=== PATIENT | male | born 1950 | race Caucasian/White ===

== ENCOUNTER 2016-07-13 09:54 | Observation (INO) | payer MEDICARE, OTHER ==
[~2016-07-13] VITALS: Ht 177.8 cm; Wt 105.1 kg
[2016-07-13 09:50] VITALS: BP 140/75; PULSE 60; RESP 16; O2SAT 99
--- NOTE | 2016-07-13 10:08 | ED.REPORT ---
HPI-Chest Pain 40 and Over Date of Service July 13, 2016 ED Provider: Fab Coronado MD The patient is a 66 year old male with history of hypertension, hyperlipidemia, and hypothyroidism, who was brought to the emergency department by EMS complaining of left-sided neck pain, left shoulder, and left-sided chest pain that began suddenly this morning while he was at rest. His pain was initially at a 6/10. He took 2 aspirin after onset with no relief. He was given nitroglycerin x4 by medics which improved his pain to a 1/10. His pain was not changed with exertion. He has not had similar symptoms in the past. He denies back pain, shortness of breath, lightheadedness, dizziness, nausea or vomiting. He denies history of cardiac disease. Nursing Notes Stated Complaint: CHEST PAIN Chief Complaint: Chest Pain Nursing Notes Reviewed: Yes Allergies: Uncoded Allergies: SEAFOOD (Allergy, Unknown, 07/13/16) "I have sensitive, especially crab. I still seafood." Scheduled Allopurinol (Allopurinol) 100 Mg Tablet 200 MG PO HS Colchicine (Colchicine) 0.6 Mg Tablet 0.6 MG PO HS Levothyroxine (Levothyroxine) 50 Mcg Tablet 50 MCG PO DAILY Losartan Potassium (Losartan Potassium) 50 Mg Tablet 50 MG PO DAILY Metoprolol Succinate ER (Metoprolol Succinate ER) 25 Mg Tab.er.24h 25 MG PO HS Simvastatin (Simvastatin) 40 Mg Tablet 40 MG PO QPM diphenhydrAMINE HCl (Benadryl) 25 Mg Capsule 50 MG PO HS Scheduled PRN Aspirin (Aspirin) 325 Mg Tablet 325 MG PO DAILY PRN PRN prn Indomethacin (Indomethacin) 50 Mg Capsule 50 MG PO TID PRN PRN gout General Time Seen by MD: 09:56 Chief Complaint Chest pain Hx Obtained From: Patient, Spouse, EMS Arrived By: Ambulance Sudden in Onset?: Yes Onset Occurred: 1 - 4 hours ago Symptom Duration: Since onset Location: : Chest left: Neck: Shoulder left Quality: Painful Severity: Current: Pain level 1 out of 10 Severity: Maximum: Pain level 6 out of 10 Recent Healthcare: No recent doctor visit, No recent hospitalization Similar Sx Previous: No Past Medical History Past Medical History Hypertension Hyperlipidemia Hypothyroidism Gout Denies: Coronary artery disease Family History Noncontributory Social History Other Social History: Good social support, , Local resident Ambulatory Status Independent Review of Systems Respiratory: Denies: Shortness of breath Cardiovascular: Reports: Chest pain GI: Denies: Nausea, Vomiting Musculoskeletal: Reports: Joint pain, Neck pain, Denies: Back pain Neurologic: Denies: Dizziness, Lightheaded Complete sys rev & neg: except as marked. Physical Exam Initial Vital Signs Vital Signs (First) Date Time Temp Pulse Resp B/P Pulse Ox O2 Delivery O2 Flow Rate FiO2 07/13/16 09:50 36.6 60 16 140/75 99 Room Air Initial VS: Reviewed Head / Eyes: Atraumatic, Normocephalic, PERRL ENT: Mucous membranes moist, Conjunctiva normal, No scleral icterus Neck: Supple, Non-tender, Full range of motion Back: No CVA tenderness Lymphatic: No lymphadenopathy Extremities: Vascular intact, Neuro intact, No swelling, No tenderness Skin: Warm, Dry, No cyanosis Neurologic: Alert, Oriented, Nonfocal Psychiatric: Mood/affect normal, Behavior normal, Normal thought content General/Constitutional: Awake, Alert, No acute distress, Well appearing Respiratory / Chest: Atraumatic, Breath sounds NL, Breath sounds = bilat, No respiratory distress, No rales, No rhonchi, No wheezing, No stridor, No chest tenderness No reproducible tenderness Cardiovascular: Heart rate NL, Regular rhythm, Heart sounds NL, No gallop, No murmurs, No rubs, Peripheral circulation NL, Pulses = bilaterally, No gross BP differential Abdomen: Atraumatic, Soft, Non-tender, McBurney's non-tender, No guarding, No rebound, BS normoactive, No distention, No hernia, No palpable mass Lower Extremity / Pelvis / MS: No swelling, Non-tender, Neurologic intact, Vascular intact, No edema Interpretation & Diagnostics Lab Results Interpretation Result Diagram: 07/13/16 1000 07/13/16 1000 Test 07/13/16 10:00 07/13/16 13:56 White Blood Count 7.2th/mm3 (3.8-10.1) Red Blood Count 5.02mil/mm3 (4.40-5.80) Hemoglobin 15.4g/dL (13.8-17.2) Hematocrit 44.3% (41.0-50.0) Mean Corpuscular Volume 88.2fL (81-100) Mean Corpuscular Hemoglobin 30.7pg (27.0-35.0) Mean Corpuscular Hemoglobin Concent 34.8% (32.0-37.0) Red Cell Distribution Width 13.3% (12.3-15.4) Platelet Count 182bil/L (150-400) Neutrophils (%) (Auto) 45.9% (40-74) Lymphocytes (%) (Auto) 42.0% (14-46) Monocytes (%) (Auto) 9.2% (4-12) Eosinophils (%) (Auto) 2.2% (0-5) Basophils (%) (Auto) 0.4% (0-3) Activated Partial Thromboplast Time 27.0sec (22.8-33.0) D-Dimer < 0.50mg/L FEU (<0.50) Hold Urine Received (Received) Sodium Level 138mEq/L (134-144) Potassium Level 4.3mEq/L (3.5-5.2) Chloride Level 103mEq/L (97-108) Carbon Dioxide Level 19mmol/L (18-29) Blood Urea Nitrogen 19mg/dL (8-27) Creatinine 0.76mg/dL (0.76-1.27) Estimat Glomerular Filtration Rate 109mL/min (>59) Glucose Level 145mg/dL (60-99) Calcium Level 8.8mg/dL (8.5-10.1) Magnesium Level 2.0mg/dL (1.6-2.6) Total Bilirubin 0.5mg/dL (0.0-1.2) Aspartate Amino Transf (AST/SGOT) 24U/L (0-50) Alanine Aminotransferase (ALT/SGPT) 25U/L (0-44) Alkaline Phosphatase 96U/L (25-160) Troponin T 0.010ug/L (0.0-0.011) Total Protein 6.6g/dL (6.4-8.4) Albumin 4.1g/dL (3.4-5.0) ECG Interpretation ECG Interpretation: Sinus rhythm with a rate of [address] T changes Time: 10:08 Interpreted by: ED physician X-Ray Chest Interpretation Chest Xray Interpretation: Normal chest Interpretation / Wet Read by: Interpret - Radiologist Re-Eval/Medical Decision Med Decision/Clinical Course 66-year-old male history of hypertension, hyperlipidemia presenting with left-sided chest pain radiating to neck and shoulder at 8:00 this morning lasting for 1 hour resolved with nitroglycerin by paramedics. No recurrence. EKG no ischemia. First set troponins negative. Discussed with bioinformatics technician who recommends admission for trending EKG and enzymes and starting heparin drip. Admitted. Source of Hx: Old records, EMS, Family Time of Eval: 12:10 Re-Evaluation/Progress Note: Rechecked the patient. Discussed plan for admission. All questions were addressed. Consultation #1: Referral / Consult Name: Ron Amezcua MD Consulted With: Cardiology Call Returned at: 11:45 Note: He recommends heparin and admission. Consultation #2: Referral / Consult Name: Ashish Thomas MD Consulted With: Hospitalist Call Returned at: 13:45 Licensing Coordinator: Will see patient, Agrees with eval, Agrees with plan, Accepts admit Counseled Regarding: Diagnosis, Lab results, Need for admission Discharge & Departure Primary Impression: Chest pain Chest pain type: unspecified Qualified Code: R07.9 - Chest pain, unspecified Disposition: ADMITTED TO HOSPITAL Discharge Condition All VS Reviewed: Yes Condition: Stable Crit Care Except Billable Proc Time Spent: 30-74 minutes (60) Services Performed: Patient management by me, Time spent at bedside, Reviewing test results, Reviewing imaging, Discussing patient care, Documentation in record, Time with fam/surrogate Scribe Attestation Portions of this note were transcribed by Holly Melendez. I, Dr. Coronado personally performed the history, physical exam and medical decision-making; I reviewed and confirmed the accuracy of the information in the transcribed note. Signed by: Umesh Smith, 07/13/2016 at 1430. Fab Coronado MD July 13, 2016 10:08 Holly Melendez July 13, 2016 10:14
[2016-07-13 10:14] LABS: BASOPHILS % (AUTO) 0.4 % (0-3); EOSINOPHILS % (AUTO) 2.2 % (0-5); MONOCYTES % (AUTO) 9.2 % (4-12); Mean Corpuscular Hemoglobin 30.7 pg (27.0-35.0); Mean Corpuscular Volume 88.2 fL (81-100); NEUTROPHILS % (AUTO) 45.9 % (40-74); Platelet Count 182 bil/L (150-400)
[2016-07-13 10:39] LABS: TROPONIN T 0.01 ug/L (0.0-0.011)
[2016-07-13 11:28] VITALS: BP 139/76; PULSE 57; RESP 18; O2SAT 99
[2016-07-13] MEDS ORDERED: Heparin 25K Unit/500mL 0.45 NS 25,000 UNIT in IV Premix 1 EACH IV ONE (12:10)
[2016-07-13] MEDS ORDERED: Heparin 5,000 Unit/mL Inj IVPUSH ONE (12:10)
[2016-07-13] MEDS ORDERED: Ondansetron 2 mg/mL 2 mL Inj IVPUSH PRN ×3 (13:25→14:00)
[2016-07-13] MEDS ORDERED: Alum-Mag Hydrox-Simeth 30 mL Suspension PO PRN (13:25)
[2016-07-13] MEDS ORDERED: COLC0.6T55 PO (13:35)
[2016-07-13] MEDS ORDERED: Polyethylene Glycol (PEG) 17 Gm Powder PO PRN ×2 (13:40→14:00)
[2016-07-13] MEDS ORDERED: Heparin 25K Unit/500mL 0.45 NS 25,000 UNIT in IV Premix 1 EACH IV SCH (14:00)
[2016-07-13] MEDS ORDERED: Heparin 5,000 Unit/mL Inj IVPUSH PRN (14:00)
[2016-07-13] MEDS ORDERED: LOSA50TA37 PO (14:08)
[2016-07-13] MEDS ORDERED: SIMV40TA5 PO (14:08)
[2016-07-13] MEDS ORDERED: ASPI325T32 PO (14:08)
[2016-07-13] MEDS ORDERED: METO25TA99 PO (14:08)
[2016-07-13] MEDS ORDERED: LEVO50TA6 PO (14:08)
[2016-07-13] MEDS ORDERED: INDO50CA PO (14:08)
[2016-07-13] MEDS ORDERED: ZYL100 PO (14:08)
[2016-07-13] MEDS ORDERED: DIPH25CA6 PO (14:08)
--- NOTE | 2016-07-13 14:29 | PCM.HPMED ---
Subjective Date of Service July 13, 2016 Primary Provider: Admitting Physician: Primary Care Physician: Racheal Christian MD Attending Physician: Admit Status: From the Emergency Department, 23-Hour Observation, Admit to [facility] Team, Remote Telemetry Chief Complaint: Chest pain History of Present Illness: This is a 66-year-old, who was admitted today with chest pain. He was sitting in his recliner home when he developed his acute on chronic neck pain. Neck pain is positional and migrated to the left arm. He then developed a chest pressure which was persistent and did not seem to increase with anything in particular. No associated nausea vomiting or diaphoresis. The pain was not clearly pleuritic. Ultimately because of persistent aching he called 911 and was given nitroglycerin spray which did help his symptoms. The patient has no cardiac history. He has noted progressive dyspnea on exertion over the years but no chest pain with exertion. No history of heart problems. He denies any pedal edema, orthopnea, pleuritic pain, or hemoptysis. No leg swelling. In the ED his EKG and troponin were normal. He was started on heparin drip. He does have a strong family history for cardiac disease as well as hypertension and hyperlipidemia. He has never had a stress test. No recent URI symptoms including rhinorrhea cough or sore throat. No fevers or chills. Review of Systems: No headache, visual changes or hearing loss. He denies any nausea or diarrhea emesis. No dyspepsia. No difficulty with urination. No blood per rectum. No weight loss or gain. No anxiety or depression. All systems reviewed and otherwise negative except as noted in history of present illness Allergies Uncoded Allergies: SEAFOOD (Allergy, Unknown, 07/13/16) "I have sensitive, especially crab. I still seafood." Home Medications Metoprolol XL 25 daily simvastatin 40 daily aspirin periodically 81 mg daily levothyroxine 50 g daily L. All 100 mg daily losartan 50 mg daily colchicine 0.6 mg when necessary and indomethacin 50 mg by mouth daily when necessary PMH 1. Essential hypertension 2. Intermittent gout 3. Hyperlipidemia Family History Father with heart disease at age 59 and 2 brothers with no heart disease disease with carotid disease at age 59. Social History Occupation: retired Hx Alcohol Use: Yes (daily- 1 glass wine) Hx Substance Use: No Hx Tobacco Use: No Living Arrangement: with Family Exam Vital Signs Vital Sign - Last Date Time Temp Pulse Resp B/P Pulse Ox O2 Delivery O2 Flow Rate FiO2 07/13/16 11:28 57 18 139/76 99 Nasal Cannula 07/13/16 09:50 36.6 Exam Oriented 3. No distress. Fluent speech. Normal affect. Normal skull. Normal nose and ears. Anicteric sclera, symmetric pupils Oropharynx is unremarkable, no facial droop. Neck is supple, normal thyroid. No adenopathy. Lungs are clear, normal effort rate. Heart is regular without murmur gallop or rub. Abdomen soft, nondistended or tender. Extremities are free of pedal edema. Good radial and pedal pulses. Skin is free of rash, lesions. No petechiae or ecchymosis. Joints are grossly normal. Cranial nerves are grossly normal. Motor strength is normal in all extremities. Normal muscular tone. Lab and Diagnostics Result Diagram: 07/13/16 1000 07/13/16 1000 X-Rays, CTs and MRIs Chest x-ray is unremarkable 12-lead ECG EKG sinus rhythm without ST segment changes Assessment & Plan 1. Chest pain, POA. Improved. The patient is at moderate risk for heart disease. This point we will continue his beta blockade, aspirin, and heparin. The patient had several troponins. The heparin was recommended by cardiology when the ED physician called. The patient has negative troponins and no symptoms overnight we will stop the heparin drip in the morning and proceed with a stress test. 2. Essential hypertension, POA. Usual medications and monitor clinically 3. Hyperlipidemia, POA. Recheck lipids and continue statin. 4. Chronic gout, POA. Currently quiescent. Continue allopurinol. Patient is full resuscitation, discussed today Observation status with anticipated length of stay of one night. Pain Evaluation: Adequate Pain Control Resuscitation Status: CPR: Attempt Resuscitation Time spent 40 minutes Ashish Thomas MD July 13, 2016 14:29
[2016-07-13 14:44] LABS: APPEARANCE,URINE CLEAR (CLEAR,HAZY); COLOR,URINE YELLOW (YELLOW); OCCULT BLOOD,URINE MODERATE (NEGATIVE); UROBILINOGEN,URINE NORMAL (NORMAL)
--- NOTE | 2016-07-13 16:07 | NUR ---
[place] [facility] [place] Transfer[place] [facility] at 1607 in stable conditions. Report given to [facility] nurse, Jose Clark RN. went to [facility] with pt.
[2016-07-13] MEDS: Sodium Chloride LOK Flush 10 mL Syringe IVFLUSH SCH (16:30)
[2016-07-13] MEDS ORDERED: Sodium Chloride LOK Flush 10 mL Syringe IVFLUSH SCH (16:30)
[2016-07-13 16:32] VITALS: PULSE 63
[2016-07-13 16:42] VITALS: BP 171/90; PULSE 59; RESP 22; O2SAT 100
--- NOTE | 2016-07-13 17:52 | NUR ---
Admit [facility] [place] admitted [place] [facility] at approx 1615, arrived on RA with IV heparin infusing, denies CP, and able to ambulate to standing scale. Pt arrived accompanied by and with all belongings. Admit and med rec MD killian notified & home meds ordered. Pt to be NPO after midnight for stress test in am. Care continues
[2016-07-13 20:00] VITALS: PULSE 72
[2016-07-13 20:27] VITALS: BP 162/105; PULSE 66; RESP 22; O2SAT 95
[2016-07-13] MEDS: Heparin 5,000 Unit/mL Inj IVPUSH PRN (20:39)
[2016-07-13] MEDS: Heparin 25K Unit/500mL 0.45 NS 25,000 UNIT in IV Premix 1 EACH IV SCH (20:43)
[2016-07-13] MEDS ORDERED: MeTOProlol XL 25 mg ER24 Tablet PO SCH (21:00)
[2016-07-13] MEDS ORDERED: diphenhydrAMINE 25 mg Capsule PO SCH (21:00)
[2016-07-14] MEDS: Sodium Chloride LOK Flush 10 mL Syringe IVFLUSH SCH ×2 (00:30→08:15)
[2016-07-14 00:57] VITALS: BP 189/103; PULSE 64; RESP 20; O2SAT 100
[2016-07-14] MEDS ORDERED: Nitroglycerin 2% 1 Gm Ointment TOPICAL ONE (01:05)
[2016-07-14 01:31] VITALS: BP 163/97; PULSE 61; RESP 20
[2016-07-14 02:58] VITALS: BP 133/74; PULSE 66; RESP 20
[2016-07-14] MEDS: Heparin 5,000 Unit/mL Inj IVPUSH PRN ×2 (02:59→09:04)
[2016-07-14] MEDS: Heparin 25K Unit/500mL 0.45 NS 25,000 UNIT in IV Premix 1 EACH IV SCH ×2 (03:00→13:32)
[2016-07-14 06:04] VITALS: BP 122/73; PULSE 79; RESP 20; O2SAT 94
[2016-07-14 06:31] LABS: BASOPHILS % (AUTO) 0.2 % (0-3); EOSINOPHILS % (AUTO) 0.3 % (0-5); MONOCYTES % (AUTO) 10.8 % (4-12); Mean Corpuscular Hemoglobin 31.2 pg (27.0-35.0); Mean Corpuscular Volume 87.3 fL (81-100); NEUTROPHILS % (AUTO) 70.1 % (40-74); Platelet Count 214 bil/L (150-400)
--- NOTE | 2016-07-14 08:54 | DRSVH ---
PROCEDURE: X-RAY CHEST ONE VIEW, PORTABLE ([id number]) INDICATIONS: CHEST PAIN TECHNIQUE: One view of the chest was acquired. COMPARISON: None. FINDINGS: Surgical changes and devices: None. Lungs and pleura: No pleural effusions or pneumothorax. Lungs are clear. Mediastinum: Mediastinal contours appear normal. Heart size is normal. Bones and chest wall: No suspicious bony lesions. Overlying soft tissues appear unremarkable. IMPRESSION: Normal chest. Dictated by: Pete Gonzalez M.D. on 07/13/2016 at 10:45 Approved by: Pete Gonzalez M.D. on 07/13/2016 at 10:45
[2016-07-14 11:03] VITALS: PULSE 78
--- NOTE | 2016-07-14 11:16 | NUR ---
Case Management- PEREZ explained and signed by patient. Copy given to patient and orginal placed in chart Demetrice ALLEN/KORY
--- NOTE | 2016-07-14 11:40 | NUR ---
Disconnect Heparin drip for Stress test Patient had Heparin drip running at 1450 units/hour. Patient had order for stress test in AM. notified and ok'd patient to be disconnected from heparin drip for procedure. Will reconnect heparin drip to patient when patient arrives back on [facility] floor.
[2016-07-14 12:07] VITALS: BP 133/87; PULSE 81; RESP 20; O2SAT 93
--- NOTE | 2016-07-14 14:55 | DRSVH ---
PROCEDURE: 1 DAY TREADMILL STRESS TEST Rest and exercise myocardial perfusion SPECT with gated imaging and ejection fraction RADIOPHARMACEUTICAL: 11.0 mCi Tc-99m tetrafosmin IV at rest and 30.6 mCi Tc-99m tetrafosmin IV at pea k exercise. Fot-che-bjzlovyh was performed. INDICATIONS: 66-year-old man with chest pain. The patient has family history, hypertension and hyper lipidemia as risk factors for coronary artery disease. Evaluate myocardial ischemia. TECHNIQUE: Radiopharmaceutical was injected at peak stress test, and also at rest. SPECT images wer e obtained. SPECT myocardial perfusion images were displayed in short axis, horizontal long axis, an d vertical long axis views. Gated images were reviewed using [employer] software. COMPARISON: None. CARDIAC STRESS: A standard Jose treadmill exercise tolerance test was performed by the patient under the supervision of an attending staff. The patient exercised for 6 minutes and 50 seconds; functional aerobic impai rment (JOAN) is 0 %. Hemodynamic data: There is normal blood pressure and heart rate response to exercise stress. Patien t achieved 86% of maximum predicted heart rate at peak exercise. Symptoms: Patient denied chest pain at peak exercise exercise, resolved 6 minutes into recovery. EK mm ST depression in inferior leads; occasional PVCs. FINDINGS: Raw data: There is good myocardial labeling by radiotracer. No significant motion artifacts. Left ventricle function: Gated images demonstrate normal left ventricle wall thickening. No segment al wall motion abnormality. No transient ischemic dilation. The left ventricle resting end-diastoli c volume is normal. Left ventricle stress ejection fraction is greater than 70%; normal values are a matt 45%. Myocardial perfusion: There is a moderate size, mild, fixed defect in the lateral wall of the left v entricle, which is resolved on prone imaging, suggesting attenuation artifact. There is otherwise nor mal distribution of activity in the left and right ventricular myocardium. No reversible perfusion d efects to suggest myocardial ischemia. IMPRESSION: 1. Probably normal myocardial perfusion images. No convincing evidence for myocardial ischemia or inf arct. 2. Normal left ventricular volume and systolic function. 3. Average exercise capacity. No chest pain. There was [address] depression in the inferior leads. PQRS ATTESTATIONS: Measure 322 - Is this imaging test primarily performed on a low-risk surgery patient for preoperative evaluation within 30 days preceding their low-risk non-cardiac surgery? Low-risk surgery is defined as cardiac or myocardial infarction less than 1%, including (but not limited to) endoscopic pr ocedures, superficial procedures, cataract surgery, and excisional breast surgery: Answer: No Measure 323 - Is this imaging test performed primarily for the monitoring of an asymptomatic patient who had percutaneous coronary intervention on the visit date or within 2 years of the visit date? An swer: No Measure 324 - Is this imaging test performed primarily for the initial detection and risk assessment on an asymptomatic, low coronary heart disease patient? Low CHD risk definition = clinicians should consider the maximum number of available patient factors used to estimate risk based on [place] (A TP III criteria), typically age, gender, diabetes, smoking status, and use of blood pressure medicati on, and integrate age appropriate estimates for missing elements, such as LDL or standard blood press ure. Answer: No Dictated by: Luis F Hobbs M.D. on 07/14/2016 at 14:42 Approved by: Luis F Hobbs M.D. on 07/14/2016 at 14:53
--- NOTE | 2016-07-14 15:14 | NUR ---
Social Work-initial assessment/readiness for discharge: Data:See initial assessment. Pt is a 66 y/o male who was admitted on 07/13/16 for chest pain per H&P. Pt's insurance is [employer] and PCP is Racheal Christian MD. EMR reviewed. Pt's readmission score is 1. SW met with pt to discuss discharge planning, SW role explained. Pt is alert and oriented x3. Pt resides at home with his where he remains independent with ADLS. Pt does not use any DME and drives. Pt has no HH or SNF history. Pt no buttermaker helper care insurance or VA benefits. SW discussed DPOA/advanced directive, pt confirms he has completed this, SW encouraged a copy to be brought into the hospital. Pt anticipates to return home with at discharge. Pt has been up independent in his room. No discharge needs identified. SW provided phone number and plan on white board in room. SW will continue to follow if needs arise. Assessment:Pt who is independent at baseline. Plan:Pt to discharge home when medically stable via POV.No anticipated discharge needs. SW will continue to follow if needs arise. ANAI Fraser Addendum: 07/14/16 at 1517 by SALLY DEMARCO Amended: Links added.
--- NOTE | 2016-07-14 15:24 | PCM.DIMED ---
Discharge Instructions Date of Service July 14, 2016 Dates of Hospitalization July 13, 2016 at 15:03 Discharge Diagnosis Discharge Diagnosis Chest pain Test Results Your stress test was relatively normal showing good cardio perfusion. Your triglycerides were high 288 Diet Low fat, Low Sodium Activity No restrictions Call your provider Fever or Chills, Chest pain, Weakness (unilateral) Patient Instructions Please follow-up with your primary care physician for further workup and management of high triglycerides Follow-up Provider: Racheal Christian MD Follow-up with PCP in: 1 week (if an appointment has not been made please call to schedule an appointment) Daija Montoya DO July 14, 2016 15:24
--- NOTE | 2016-07-14 15:30 | NUR ---
Discharge Patient given discharge orders. Patient given medication list with written and verbal instructions when next dose is due. Patient IV removed fully intact and asymptomatic. Patient given follow up instructions. Patient in room at time of discharge. Patient reminded to leave with all personal belongings.
--- NOTE | 2016-07-14 15:31 | PCM.DC.MED ---
Discharge Summary Date of Service July 14, 2016 Dates of Hospitalization Date of Hospital Admission July 13, 2016 at 15:03 Date of Discharge: July 14, 2016 Providers: Admitting Physician: Ashish Thomas MD Primary Care Physician: Racheal Christian MD Attending Physician: Ashish Thomas MD Diagnosis at Time of Discharge Diagnosis at Time of Discharge Chest pain Procedures XRay, CTs & MRIs Chest x-ray is unremarkable ECG 12 Lead EKG sinus rhythm without ST segment changes Invasive Procedures PROCEDURE: 1 DAY TREADMILL STRESS TEST Rest and exercise myocardial perfusion SPECT with gated imaging and ejection fraction IMPRESSION: 1. Probably normal myocardial perfusion images. No convincing evidence for myocardial ischemia or infarct. 2. Normal left ventricular volume and systolic function. 3. Average exercise capacity. No chest pain. There was [address] depression in the inferior leads. Dictated by: Luis F Hobbs M.D. on 07/14/2016 at 14:42 Approved by: Luis F Hobbs M.D. on 07/14/2016 at 14:53 Brief History This is a 66-year-old, who was admitted today with chest pain. He was sitting in his recliner home when he developed his acute on chronic neck pain. Neck pain is positional and migrated to the left arm. He then developed a chest pressure which was persistent and did not seem to increase with anything in particular. No associated nausea vomiting or diaphoresis. The pain was not clearly pleuritic. Ultimately because of persistent aching he called 911 and was given nitroglycerin spray which did help his symptoms. The patient has no cardiac history. He has noted progressive dyspnea on exertion over the years but no chest pain with exertion. No history of heart problems. He denies any pedal edema, orthopnea, pleuritic pain, or hemoptysis. No leg swelling. In the ED his EKG and troponin were normal. He was started on heparin drip. He does have a strong family history for cardiac disease as well as hypertension and hyperlipidemia. He has never had a stress test. No recent URI symptoms including rhinorrhea cough or sore throat. No fevers or chills. Hospital Course Patient presented with the complaint of chest pain. The patient was worked up and had negative troponins 3. Cardiac stress test was performed and showed normal myocardial perfusion, no chest pain, there was a [address] depression during exercise however after discussion with cardiology (Dr. Amezcua) he states that the EKG change is most likely a false positive in the setting of good myocardial perfusion and no chest pain. The patient has been recommended to follow up with his primary care in the next week. The patient was diagnosed with hypertriglyceridemia and should also follow-up with his PCP for further workup and treatment. The patient is being discharged home in stable condition Please see below for full hospital course: 1. Chest pain, POA. Improved. The patient is at moderate risk for heart disease. This point we will continue his beta blockade, aspirin, and heparin. The patient had several troponins. The heparin was recommended by cardiology when the ED physician called. The patient has negative troponins and no symptoms overnight we will stop the heparin drip in the morning and proceed with a stress test. 2. Essential hypertension, POA. Usual medications and monitor clinically 3. Hyperlipidemia, POA. Recheck lipids and continue statin. 4. Chronic gout, POA. Currently quiescent. Continue allopurinol. Patient is full resuscitation, discussed today Observation status with anticipated length of stay of one night. Exam Vital Signs (Last) Date Time Temp Pulse Resp B/P Pulse Ox O2 Delivery O2 Flow Rate FiO2 07/14/16 12:07 36.7 81 20 133/87 93 Room Air Exam Physical Exam: GEN: Patient was awake, alert, responding appropriately to questions HEENT: Pupils equal round and reactive to light, extraocular eye muscles intact , Neck soft supple, trachea midline, nomocephalic/atraumatic CV: +S1/S2, regular rate and rhythm, no murmurs auscultated Respiratory: CTAB, no wheezes, rales, rhonchi GI: +bowel sounds x4, soft, compressible, nontender to palpation EXT: no clubbing, cyanosis, edema Neuro: Cranial nerves II-XII grossly intact Psych: mood and affect were appropriate Test 07/13/16 10:00 07/13/16 13:56 07/13/16 15:22 07/14/16 02:00 D-Dimer < 0.50mg/L FEU (<0.50) Magnesium Level 2.0mg/dL (1.6-2.6) Urine Color Yellow (YELLOW) Urine Appearance Clear (CLEAR,HAZY) Urine pH 6.0 (5.0-8.0) Urine Specific [place] 1.020 (1.003-1.035) Urine Protein Negativemg/dL (NEG,TRACE) Urine Glucose (UA) Negativemg/dL (NEGATIVE) Urine Ketones Negativemg/dL (NEGATIVE) Urine Occult Blood Moderate (NEGATIVE) Urine Nitrite Negative (NEGATIVE) Urine Bilirubin Negative (NEGATIVE) Urine Urobilinogen Normalmg/dL (NORMAL) Urine Leukocyte Esterase Negative (NEGATIVE) Urine RBC 11-50/hpf (0-2) Urine WBC 0-5/hpf (0-5) Urine Epithelial Cells Occasional/hpf (NONE-MOD) Urine Crystals None seen (NONE SEEN) Urine Bacteria None/hpf (NONE-FEW) Urine Hyaline Casts None/lpf (NONE) Urine Granular Casts None seen (NONE SEEN) Urine Waxy Casts None seen (NONE SEEN) Urine Red Blood Cell Casts None seen (NONE SEEN) Urine White Blood Cell Casts None seen (NONE SEEN) Urine Mucus Present (None Seen) Urine Trichomonas None seen (NONE SEEN) Urine Yeast None (NONE SEEN) Urinalysis Comment None Urine Culture Reflexed Not indicated Hold Urine Received (Received) Troponin T 0.010ug/L (0.0-0.011) Test 07/14/16 06:22 07/14/16 12:45 07/14/16 15:00 Red Blood Count 5.29mil/mm3 (4.40-5.80) Hemoglobin 16.5g/dL (13.8-17.2) Hematocrit 46.2% (41.0-50.0) Mean Corpuscular Volume 87.3fL (81-100) Mean Corpuscular Hemoglobin 31.2pg (27.0-35.0) Mean Corpuscular Hemoglobin Concent 35.7% (32.0-37.0) Red Cell Distribution Width 13.1% (12.3-15.4) Platelet Count 214bil/L (150-400) Neutrophils (%) (Auto) 70.1% (40-74) Lymphocytes (%) (Auto) 18.4% (14-46) Monocytes (%) (Auto) 10.8% (4-12) Eosinophils (%) (Auto) 0.3% (0-5) Basophils (%) (Auto) 0.2% (0-3) Sodium Level 136mEq/L (134-144) Potassium Level 4.5mEq/L (3.5-5.2) Chloride Level 97mEq/L (97-108) Carbon Dioxide Level 18mmol/L (18-29) Blood Urea Nitrogen 13mg/dL (8-27) Creatinine 0.74mg/dL (0.76-1.27) Estimat Glomerular Filtration Rate 112mL/min (>59) Glucose Level 178mg/dL (60-99) Calcium Level 9.1mg/dL (8.5-10.1) Total Bilirubin 0.8mg/dL (0.0-1.2) Aspartate Amino Transf (AST/SGOT) 32U/L (0-50) Alanine Aminotransferase (ALT/SGPT) 27U/L (0-44) Alkaline Phosphatase 107U/L (25-160) Total Protein 7.4g/dL (6.4-8.4) Albumin 4.5g/dL (3.4-5.0) Triglycerides Level 288mg/dL (0-149) Cholesterol Level 156mg/dL (100-199) LDL Cholesterol, Calculated 66.400mg/dL (0-99) VLDL Cholesterol 57.600mg/dL HDL Cholesterol 32mg/dL (>39) Cholesterol/HDL Ratio 4.88 (0.0-4.4) White Blood Count 11.5th/mm3 (3.8-10.1) Discharge Medications Discharge Medications Allopurinol (Allopurinol) 100 Mg Tablet 200 MG PO HS (Reported) Colchicine (Colchicine) 0.6 Mg Tablet 0.6 MG PO HS (Reported) Levothyroxine (Levothyroxine) 50 Mcg Tablet 50 MCG PO DAILY (Reported) Losartan Potassium (Losartan Potassium) 50 Mg Tablet 50 MG PO DAILY (Reported) Metoprolol Succinate ER (Metoprolol Succinate ER) 25 Mg Tab.er.24h 25 MG PO HS ( Reported) Simvastatin (Simvastatin) 40 Mg Tablet 40 MG PO QPM (Reported) diphenhydrAMINE HCl (Benadryl) 25 Mg Capsule 50 MG PO HS (Reported) As needed Aspirin (Aspirin) 325 Mg Tablet 325 MG PO DAILY PRN PRN prn (Reported) Indomethacin (Indomethacin) 50 Mg Capsule 50 MG PO TID PRN PRN gout (Reported) Followup Plan Discharge Diet: Low fat, Low Sodium Discharge Activity: No restrictions Patient Instructions Please follow-up with your primary care physician for further workup and management of high triglycerides Follow-up Provider: Gino, Racheal Jimena MD Follow-up with PCP in: 1 week (if an appointment has not been made please call to schedule an appointment) Time spent Greater than 35 minutes copies to: Racheal Christian MD, Precious L DO July 14, 2016 15:31
--- NOTE | 2016-07-14 16:39 | NUR ---
Social Work-discharge: Data:EMR reviewed. Pt is medically stable for discharge. Pt has been up independent in his room. No discharge needs identified. All updated and agreeable to plan. Assessment:Pt who is independent at baseline. Plan:Pt to discharge home today via POV. No discharge needs identified. All updated and agreeable to plan. ANAI Fraser
== END 2016-07-14 15:52 | disposition home or self-care (01) ==
LOC: EDBD 09:54 → SED 09:54 → MPC 15:03
PROVIDERS: ADMIT Hospitalist; ATTEND Hospitalist
DX: R07.9 Chest pain, unspecified (principal); I10 Essential (primary) hypertension; E78.5 Hyperlipidemia, unspecified; M10.9 Gout, unspecified; E03.9 Hypothyroidism, unspecified; Z79.82 Long term (current) use of aspirin
CPT/HCPCS: 36415; 71010; 78452; 80053; 80061; 81000; 82274; 82948; 83735; 84484; 85025; 85048; 85378; 85730; 93005; 93017; 96374; 96375; 96376; 99291; A9502; G0378; J1644; J2270